=== PATIENT | female | born 1935 | race Caucasian/White ===

== ENCOUNTER 2018-05-28 14:05 | Inpatient (IN) ==
[2018-05-28] MEDS ORDERED: Aluminum/Magnesium/Simethacone Susp 30 ML UDC PO PRN (15:45)
[2018-05-29] MEDS ORDERED: Aluminum/Magnesium/Simethacone Susp 30 ML UDC PO PRN (08:19)
--- NOTE | 2018-05-29 08:49 | P.HPPSY ---
Provisional Diagnosis Admission Date: May 28, 2018 14:05 [place] I.: Dementia with behavioral disturbances no other disease, Alzheimer's disease with late onset Competence Certification of Person's Competence To Provide Express and Informed Consent I have personally examined Yanira Parker, a person being served at [facility] on, May 29, 2018 0832. Express and informed consent means consent voluntarily given in writing, by a competent person, after sufficient explanation and disclosure of the subject matter involved to enable the person to make a knowing and willful decision without any element of force, fraud, deceit, duress, or other form of constraint or coercion. This person is 18 years of age or older, is not now known to be incompetent to consent to treatment with a guardian advocate, and does not have a health care surrogate or proxy currently making medical treatment decisions. I have found this person to be one of the following: [] Competent to provide express and informed consent, as defined above, for voluntary admission to this facility and is competent to provide express and informed consent for treatment. He/she has the consistent capacity to make well reasoned, willful, and knowing decisions concerning his or her medical or mental health treatment. The person fully and consistently understands the purpose of the admission for examination/placement and is fully capable of personally exercising all rights assured under [place]xxx] Incompetent to provide express and informed consent to voluntary admission , and this is incompetent to provide express and informed consent to treatment. The person must be transferred to involuntary status and a petition for a guardian advocate filed with the Circuit Court. [] Refusing to provide express and informed consent to voluntary admission but is competent to provide express and informed consent for treatment. The person must be discharged or transferred to involuntary status. Form shall be completed within 24 hours of a person's arrival at the receiving facility and filed in the clinical record of each person: 1. Admitted on a voluntary basis 2. Permitted to provide express and informed consent to his/her own treatment 3. Allowed to transfer from involuntary to voluntary status 4. Prior to permitting a person to consent to his or her own treatment after having been previously found incompetent to consent to treatment. History of Present Illness Capacity: Lacks capacity Chief Complaint: Dementia with aggressive behavior History of Present Illness: Patient is an 83-year-old white female who comes here under a [place] act by the [place] [employer] dated 05/27/2018 at 5 PM that document reviewed essentially states said she wanted to kill herself was asking other people for sharp objects and knives she raised her fist me. She was screened in [facility] and transferred here after being medically cleared under the [place] act. Patient seen in her room with RN. Patient is a elderly white female appears her stated age she is calm cooperative if at times a little labile and "feisty" she states she is unhappy in her living [place] [facility]. She is quite confused as to the length of stay there. She does not remember saying she would rather be than continue living there she does not like the restrictions placed on her. Patient denies any past psychiatric history. She states she will have a rare beer and she will rarely sneak a cigarette. She states she has been for a number of years and has 2 children 1 son who is surviving those son . It appears she is living with a son until about 2 years ago when she moved in with her son by the name of Floyd. He was unable to care for her in the house due to his work obligations though she was placed back in October 2017 in this skilled nursing. I did talk to the son at [phone]. He gave the above history. States she is doing well there until just about a week ago when these no behavior started exhibiting themselves. He also denies any past psychiatric history with his mother and the alcohol or drug use or any abuse. At this time patient meets criteria for further observation and assessment. Upon review of her meds from the [facility] she was Seroquel 50 mg in the morning and 75 mg at 2 PM we will adjust that to 25 mg in the a.m. 50 mg at noon and 50 mg at 6 PM. Hopeless be fairly short stay and can work with this lady about finding an appropriate placement. Her son is in appears power of insurance defense attorney also do have a DNR form in the chart. At this time she does meet [place] criteria I will do first opinion request second opinion I do not feel she has capacity I will ask for health care surrogate and guardian advocate - Inpatient Certification I certify that the inpatient services were ordered in accordance with Medicare regulations governing the order. This includes certification that hospital inpatient services are reasonable and necessary and in the case of services not specified as inpatient-only under 42 CFR 419.22(n), that they are appropriately provided as inpatient services in accordance to with the 2-midnight benchmark under 43 CFR 412.3(e) I certify that inpatient psychiatric hospital services are medically necessary. Evaluation and treatment and/or diagnostic testing are expected to improve the patient's condition. The patient needs on a daily basis, active treatment furnished directly by or requiring the supervision of inpatient psychiatric facility personnel. Estimated Total Length of Stay (Days): 5 Plans for Post Hospital Care: long term Review of Systems unobtainable due to mental status, other (Patient demented markedly confused) [facility] - History History Provided By: Patient, Family Member (Son Floyd) - Medical History Medical History: Medical History (Last Updated 05/28/18 @ 20:38 by Melissa Bain RN) Dementia GERD (gastroesophageal reflux disease) Hypertension Hypothyroidism - Tobacco History Second Hand Smoke Exposure: No Smoking Status: Never smoker - Alcohol History How Often Do You Have a Drink Containing Alcohol: Never - Travel History Recent Travel in the USA Within the Last 8 Weeks: No Recent Travel Out of the Country Within the Last 8 Weeks: No Quality Measures - Psychiatric History Psychological trauma history: None known Violence risk to others in the last 6 months: Patient made vague threats at [facility] Violence risk to self in the last 6 months: Patient made vague threats at [facility] - Substance Abuse History Drug or alcohol use in the past 12 months: Denies - Patient Strengths Patient's strengths (minimum of 2): Patient verbal able access healthcare has supportive family Medications and Allergies Active Medications: Active Medications Acetaminophen (Tylenol) 650 mg PO Q4H PRN PRN Reason: Pain 1-5 or Temp >101F Al Hydrox/Mg Hydrox/Simethicone (Mag-Al Plus Susp Liq) 30 ml PO Q6H PRN PRN Reason: DYSPEPSIA Al Hydrox/Mg Hydrox/Simethicone (Mag-Al Plus Susp Liq) 30 ml PO Q6H PRN PRN Reason: DYSPEPSIA Al Hydroxide/Mg Hydroxide (Milk Of Magnesia Liq) 30 ml PO Q12H PRN PRN Reason: Mild Constipation Al Hydroxide/Mg Hydroxide (Milk Of Magnesia Liq) 30 ml PO Q12H PRN PRN Reason: Mild Constipation Aspirin (Aspirin Chew) 81 mg PO DAILY DONNA Atorvastatin Calcium (Lipitor) 40 mg PO DAILY COUNT INCLUDES THE [facility] Diphenhydramine HCl (Benadryl) 50 mg PO HS PRN PRN Reason: INSOMNIA Docusate Sodium (Colace) 100 mg PO HS COUNT INCLUDES THE [facility] Hydroxyzine HCl (Atarax) 50 mg PO Q6H PRN PRN Reason: ANXIETY Magnesium Oxide (Mag-Ox) 400 mg PO DAILY COUNT INCLUDES THE [facility] Non-Formulary Medication (Donepezil [Donepezil]) 10 mg PO HS COUNT INCLUDES THE [facility] Non-Formulary Medication (Ranitidine Hcl [Ranitidine Hcl]) 150 mg PO DAILY COUNT INCLUDES THE [facility] Quetiapine Fumarate (Seroquel) 50 mg PO DAILY@,18 COUNT INCLUDES THE [facility] Quetiapine Fumarate (Seroquel) 25 mg PO DAILY COUNT INCLUDES THE [facility] Verapamil HCl (Isoptin Sr) 120 mg PO DAILY COUNT INCLUDES THE [facility] Allergies Allergy/AdvReac Type Severity Reaction Status Date / Time Penicillins Allergy Hives Verified 05/28/18 15:18 Home Medications Medication Instructions Recorded Confirmed Type aspirin 81 mg PO DAILY 05/28/18 05/28/18 History atorvastatin 40 mg PO DAILY 05/28/18 05/28/18 History docusate sodium [Colace] 100 mg PO HS 05/28/18 05/28/18 History donepezil 10 mg PO HS 05/28/18 05/28/18 History ibuprofen 400 mg PO Q8HR 05/28/18 05/28/18 History magnesium oxide 400 mg PO DAILY 05/28/18 05/28/18 History quetiapine 25 mg PO DAILY 05/28/18 05/28/18 History quetiapine 50 mg PO DAILY 05/28/18 05/28/18 History quetiapine See Label Instructions .ROUTE 05/28/18 05/28/18 History .COMPLEX ranitidine HCl 150 mg PO DAILY 05/28/18 05/28/18 History verapamil 120 mg PO DAILY 05/28/18 05/28/18 History Exam Vital signs: Vital Signs 05/28/18 15:19 05/29/18 06:05 Temperature 97.9 F 97.7 F Pulse Rate 78 58 L Respiratory Rate 18 19 Blood Pressure 191/86 H 179/77 H Pulse Oximetry 96 93 L Intake & Output 05/28/18 05/29/18 05/29/18 18:59 06:59 18:59 Weight 76.5 kg Other: Weight On Admission 76.5 kg Narrative: Patient sitting quietly on the edge of her bed she is in no acute distress at times somewhat tearful she is in no respiratory distress, no complaints of chest pain, no complaints of abdominal pain, patient walks with a slow shuffled states he uses a cane at home Mental Status Examination Appearance: Appropriate Consciousness: Alert Orientation: Person, Place (Did not know [place]), Date/Time (2011), Situation (Post this is a hospital) Speech: Unremarkable Language: Adequate Fund of Knowledge: Inadequate Attention and Concentration: Easily distracted Memory: Impaired Mood: Sad, Irritable Affect: Other (Slight increased range and intensity) Thought Process & Associations: Disorganized Thought Content: Appropriate Hallucination Type: None Delusion Type: Paranoid (Mildly) Suicidal Ideation: Yes (Made vague statements) Suicidal Plan: No (Denies) Suicidal Intention: No Homicidal Ideation: No (Denies) Homicidal Plan: No Homicidal Intention: No Insight: Poor Judgment: Poor Assessment and Plan - Assessment (1) Dementia in other diseases classified elsewhere with behavioral disturbance Code(s): F02.81 - Dementia in other diseases classified elsewhere with behavioral disturbance Status: Acute (2) Alzheimer's disease with late onset Code(s): G30.1 - Alzheimer's disease with late onset; F02.80 - Dementia in other diseases classified elsewhere without behavioral disturbance Status: Acute - Plan Plan: Estimated LOS: 5-7 [] days Patient meets criteria for involuntary psychiatric hospitalization I will do first opinion request second opinion they feel she does not have capacity I will ask for health care surrogate and guardian advocate. We will have hospitalist also consult will us. We will have PT and OT also consult with us she medication adjustments above Justification for Continued Inpatient Stay: At this time patient would decompensate a place to a lower level of care Discharge Planning: To be determined
--- NOTE | 2018-05-29 10:55 | P.CONIM ---
History of Present Illness Service: [facility] Consult date: 05/29/18 Requesting Physician: Eric Leonard Reason for Consult: MEDICAL MANAGEMENT Primary Care Provider: No Primary Care Physician Chief Complaint: DEMENTIA History of Present Illness: PATIENT IS A 83 YEAR OLD FEMALE WHO WAS placed under a [place] act by the [place] police department on May 27, 2018 at 5 PM. Patient supposedly wanted to kill herself with sharp objects and knives was seen at [facility] transferred here for [place] act. Patient is also noted to be a DNR. Medications have been adjusted at the prior hospital before coming here We have been now asked to consult regarding medical management Had been living in a shelter prior to presentation to the hospital here Past medical history significant for dementia GERD Hypertension Hypothyroidism History of tobacco use Review of Systems All other systems reviewed negative except as stated in HPI, unobtainable due to mental condition, unobtainable due to mental status Constitutional: Denies anorexia, Denies fatigue, Denies malaise Eyes: Reports requires corrective lenses, Denies blind spots, Denies discharge Ears, Nose, Mouth, and Throat: Denies abnormal hearing, Denies difficulty swallowing, Denies facial pain, Denies mouth lesions, Denies nasal obstruction, Denies pain with swallowing, Denies sinus pain Cardiovascular: Denies chest pain, Denies fainting, Denies irregular heart rhythm, Denies lightheadedness, Denies rapid, pounding, or irregular heartbeat, Denies shortness of breath with activity, Denies shortness of breath causing sudden awakening Respiratory: Denies change in phlegm color, Denies excessive phlegm production, Denies shortness of breath, Denies wheezing Gastrointestinal: Denies abdominal pain, Denies change in stools, Denies difficulty swallowing, Denies incontinent of stools Musculoskeletal: Reports joint pain, Denies abnormal walking, Denies muscle cramps, Denies radiating pain into limb Skin/Breast: Denies acne, Denies breast pain, Denies change in skin color, Denies hair loss, Denies non-healing lesions Neurologic: Denies abnormal hearing, Denies behavioral changes, Denies frequent falls, Denies loss of vision, Denies radiating pain Psychiatric: Reports memory loss, Reports thoughts of hurting/killing yourself Endocrine: Denies cold intolerance, Denies increased hunger, Denies rapid, pounding, or irregular heartbeat Hematologic/Lymphatic: Denies easy bleeding, Denies easy bruising, Denies enlarged lymph nodes Allergic/Immunologic: Denies GI upset with certain foods, Denies seasonal runny nose PMFSH - History History Provided By: Patient, Family Member (Son Floyd) - Medical History Medical History: Medical History (Last Updated 05/28/18 @ 20:38 by Melissa Bain RN) Dementia GERD (gastroesophageal reflux disease) Hypertension Hypothyroidism - Tobacco History Second Hand Smoke Exposure: No Smoking Status: Never smoker - Alcohol History How Often Do You Have a Drink Containing Alcohol: Never - Travel History History of Recent Travel: No Recent Travel in the [place] Within the Last 8 Weeks: No Recent Travel Out of the Country Within the Last 8 Weeks: No Medications and Allergies Active Medications: Active Medications Acetaminophen (Tylenol) 650 mg PO Q4H PRN PRN Reason: Pain 1-5 or Temp >101F Al Hydrox/Mg Hydrox/Simethicone (Mag-Al Plus Susp Liq) 30 ml PO Q6H PRN PRN Reason: DYSPEPSIA Al Hydrox/Mg Hydrox/Simethicone (Mag-Al Plus Susp Liq) 30 ml PO Q6H PRN PRN Reason: DYSPEPSIA Al Hydroxide/Mg Hydroxide (Milk Of Magnesia Liq) 30 ml PO Q12H PRN PRN Reason: Mild Constipation Al Hydroxide/Mg Hydroxide (Milk Of Magnesia Liq) 30 ml PO Q12H PRN PRN Reason: Mild Constipation Aspirin (Aspirin Chew) 81 mg PO DAILY [facility] Atorvastatin Calcium (Lipitor) 40 mg PO DAILY DONNA Diphenhydramine HCl (Benadryl) 50 mg PO HS PRN PRN Reason: INSOMNIA Docusate Sodium (Colace) 100 mg PO HS DONNA Donepezil HCl (Aricept) 10 mg PO HS DONNA Famotidine (Pepcid) 20 mg PO DAILY DONNA Hydroxyzine HCl (Atarax) 50 mg PO Q6H PRN PRN Reason: ANXIETY Magnesium Oxide (Mag-Ox) 400 mg PO DAILY DONNA Quetiapine Fumarate (Seroquel) 50 mg PO DAILY@12,18 DONNA Quetiapine Fumarate (Seroquel) 25 mg PO DAILY DONNA Verapamil HCl (Isoptin Sr) 120 mg PO DAILY DONNA Allergies Allergy/AdvReac Type Severity Reaction Status Date / Time Penicillins Allergy Hives Verified 05/28/18 15:18 Home Medications Medication Instructions Recorded Confirmed Type aspirin 81 mg PO DAILY 05/28/18 05/28/18 History atorvastatin 40 mg PO DAILY 05/28/18 05/28/18 History docusate sodium [Colace] 100 mg PO HS 05/28/18 05/28/18 History donepezil 10 mg PO HS 05/28/18 05/28/18 History ibuprofen 400 mg PO Q8HR 05/28/18 05/28/18 History magnesium oxide 400 mg PO DAILY 05/28/18 05/28/18 History quetiapine 25 mg PO DAILY 05/28/18 05/28/18 History quetiapine 50 mg PO DAILY 05/28/18 05/28/18 History quetiapine See Label Instructions .ROUTE 05/28/18 05/28/18 History .COMPLEX ranitidine HCl 150 mg PO DAILY 05/28/18 05/28/18 History verapamil 120 mg PO DAILY 05/28/18 05/28/18 History Exam Vital signs: Vital Signs 05/28/18 15:19 05/29/18 06:05 Temperature 97.9 F 97.7 F Pulse Rate 78 58 L Respiratory Rate 18 19 Blood Pressure 191/86 H 179/77 H Pulse Oximetry 96 93 L Intake & Output 05/28/18 05/29/18 05/29/18 18:59 06:59 18:59 Weight 76.5 kg Other: Weight On Admission 76.5 kg Narrative: GENERAL: Awake and alert 1-2 talkative and cooperative some confusion SKIN: Warm and dry. HEAD: Atraumatic. Normocephalic. EYES: Pupils equal and round. No scleral icterus. No injection or drainage. ENT: No nasal bleeding or discharge. Mucous membranes pink and moist. NECK: Trachea midline. No JVD. CARDIOVASCULAR: Regular rate and rhythm. S1-S2 no S3 or S4 RESPIRATORY: No accessory muscle use. Clear to auscultation. Breath sounds equal bilaterally. GASTROINTESTINAL: Abdomen soft, non-tender, nondistended. Hepatic and splenic margins not palpable. MUSCULOSKELETAL: Extremities without clubbing, cyanosis, or edema. No obvious deformities. NEUROLOGICAL: Awake and alert. No obvious cranial nerve deficits. Motor grossly within normal limits. Five out of 5 muscle strength in the arms and legs. Normal speech. PSYCHIATRIC: Appropriate mood and affect; insight and judgment ABnormal. Results - Labs Labs: Pending Assessment and Plan - Plan Dementia will defer to psychiatry as they have already adjusted her Seroquel dose and have increased it Hypertension continue on her verapamil Hyperlipidemia continue on her atorvastatin GERD/GI prophylaxis continue on ranitidine or the equivalent Continue on aspirin Physical therapy and occupational therapy to eval and treat A.m. labs Discussed with RN and patient Will check UA with ASSISTANT PROFESSOR OF PHILOSOPHY will get a.m. labs CBC CMP TSH free T4 hemoglobin A1c magnesium and a phosphorus Code Status: DNR Discussed Condition With: pulley maintainer Planning: Clearance by psychiatry
[2018-05-29] MEDS: QUEtiapine 25 MG Tablet PO SCH ×3 (11:10→18:48)
[2018-05-29] MEDS: Famotidine 20 MG Tablet PO SCH (11:11)
[2018-05-29] MEDS: Magnesium Oxide 400 MG Tablet PO SCH (11:12)
[2018-05-29] MEDS: Acetaminophen 325 MG Tablet PO PRN ×2 (12:23→12:26)
[2018-05-29] MEDS: Docusate Sodium 100 MG Capsule PO SCH (20:50)
[2018-05-30] MEDS: Famotidine 20 MG Tablet PO SCH (08:27)
[2018-05-30] MEDS: Magnesium Oxide 400 MG Tablet PO SCH (08:28)
[2018-05-30] MEDS: QUEtiapine 25 MG Tablet PO SCH ×3 (08:29→17:21)
--- NOTE | 2018-05-30 11:55 | P.PN ---
Subjective Interval history: Follow-up visit for dementia, HTN and GERD. Patient seen and examined sitting up in a chair eating lunch this afternoon in the day room, in no acute distress. Nurse reports blood pressure is elevated, no other medical complaints reported. Patient denies any fevers, chills, nausea diarrhea, cough , shortness of breath or chest pain. Patient does endorse a headache early this morning but reports that it went away, denies any visual changes at the moment. Physical Exam Vital signs: Vital Signs 05/29/18 17:10 05/30/18 06:00 05/30/18 10:00 Temperature 37.1 C 36.7 C Pulse Rate 72 62 67 Respiratory Rate 18 16 Blood Pressure 152/72 H 170/77 H 164/70 H Pulse Oximetry 95 98 05/30/18 10:11 05/30/18 11:10 05/30/18 11:33 Temperature Pulse Rate 76 64 64 Respiratory Rate Blood Pressure 152/70 H 187/87 H 160/70 H Pulse Oximetry Narrative: GENERAL: Awake and alert talkative and cooperative. SKIN: Warm and dry. HEAD: Atraumatic. Normocephalic. EYES: Pupils equal and round. No scleral icterus. No injection or drainage. ENT: No nasal bleeding or discharge. Mucous membranes pink and moist. NECK: Trachea midline. CARDIOVASCULAR: Regular rate and rhythm. RESPIRATORY: No accessory muscle use. Clear to auscultation. Breath sounds equal bilaterally. GASTROINTESTINAL: Abdomen soft, non-tender, nondistended. + Bowel sounds MUSCULOSKELETAL: Extremities without clubbing, cyanosis, or edema. No obvious deformities. NEUROLOGICAL: Awake and alert, oriented to self and place. No obvious cranial nerve deficits. Motor grossly within normal limits. Normal speech. PSYCHIATRIC: Appropriate mood and affect; insight and judgment abnormal. Results - Labs CBC & Chem 7: 05/30/18 10:18 05/30/18 10:18 Assessment and Plan - Plan 83-year-old female with past medical history significant for dementia, HTN, and GERD threatening to kill herself with sharp objects. Dementia -Treatment plan per psychiatry, greatly appreciated Hypertension, uncontrolled Hyperlipidemia -BP this morning elevated, continue verapamil 120 mg daily, will add hydralazine 10 mg 3 times daily -Continue monitoring blood pressure in adjusting medications accordingly -Continue low-dose aspirin and Lipitor GERD -Continue p.o. Pepcid DVT prophylaxis-ambulating Discussed Condition With: MARIUSZ
[2018-05-30 12:01] LABS: Baso # (Auto) 0.1 th/mm3 (0.0-0.2); Baso % (Auto) 1.1 % (0.0-2.0); Eos # (Auto) 0.2 th/mm3 (0.0-0.4); Hemoglobin 12.8 gm/dL (11.6-15.3); Lymph # (Auto) 1.2 th/mm3 (1.0-4.8); Lymph % (Auto) 14.3 % (9.0-44.0); Mean Corpuscular HGB Conc 33.6 % (32.0-36.0); Mean Corpuscular Volume 89.3 fL (80.0-100.0); Mono # (Auto) 0.6 th/mm3 (0.0-0.9); Mono % (Auto) 7.7 % (0.0-8.0); Neut # (Auto) 6.2 th/mm3 (1.8-7.7); Neut % (Auto) 74.9 % (16.0-70.0); Platelet Count 260 th/mm3 (150-450); Red Blood Count 4.26 mil/mm3 (4.00-5.30); Red Cell Distribution Width 15.6 % (11.6-17.2); White Blood Count 8.3 th/mm3 (4.0-11.0)
[2018-05-30 12:13] LABS: Albumin 3.6 g/dL (3.4-5.0); Anion Gap 8 meq/L (5-15); Aspartate Aminotransferase 11 U/L (15-37); Blood Urea Nitrogen 22 mg/dL (7-18); Calcium 9.1 mg/dL (8.5-10.1); Carbon Dioxide 28.6 meq/L (21.0-32.0); Chloride 103 meq/L (98-107); Glomerular Filtration Rate 38 mL/min (>89); Glucose,Random 73 mg/dL (74-106); Magnesium 2.1 mg/dL (1.5-2.5); Potassium 4.3 meq/L (3.5-5.1); Sodium 140 meq/L (136-145)
[2018-05-30 12:14] LABS: Alanine Aminotransferase 17 U/L (10-53); Phosphorus 3.7 mg/dL (2.5-4.9)
[2018-05-30] MEDS: hydrALAZINE 10 MG Tablet PO SCH ×2 (12:14→17:21)
[2018-05-30 12:22] LABS: Alkaline Phosphatase 101 U/L (45-117); Free T4 (Free Thyroxine) 0.93 ng/dL (0.76-1.46); Total Protein 7.1 g/dL (6.4-8.2)
[2018-05-30 16:09] LABS: Hemoglobin A1c 5.1 % (4.3-6.0)
--- NOTE | 2018-05-30 17:33 | P.CONPSY ---
Provisional Diagnosis Admission Date: May 28, 2018 14:05 [place].: Dementia with behavioral disturbances no other disease, Alzheimer's disease with late onset History of Present Illness Service: Psychiatry Consult date: 05/30/18 Requesting Physician: Eric Leonard Reason for Consult: Second opinion Primary Care Provider: No Primary Care Physician Chief Complaint: DEMENTIA History of Present Illness: Patient is a 83-year-old woman, with no formal past psychiatric history, history of dementia, was brought in under [place] due to suicidal ideation asking for sharp objects which patient was admitted to the inpatient psychiatry unit for further evaluation and management. Patient was found participating group activity noted to be alert and oriented only to person, with poor recollection to circumstances of brought into the hospital. Patient states that she had been feeling "a little bit down" and that she reports feeling lonesome. Patient reports living with her daughter and her son-in-law. Patient also mentions having had suicidal ideation that "come and go" for the past year but denying any suicide ideations recently. Patient states that she had been sleeping "fair" had with adequate appetite and bowel movement and energy. Patient denying any perceptional services other than having auditory hallucinations occasionally "very very seldom" but was unable to elaborate on the content. No delusional material elicited. [facility] - History History Provided By: Patient, Family Member (Son Floyd) - Medical History Medical History: Medical History (Last Updated 05/28/18 @ 20:38 by Melissa Bain RN) Dementia GERD (gastroesophageal reflux disease) Hypertension Hypothyroidism - Tobacco History Second Hand Smoke Exposure: No Smoking Status: Never smoker - Alcohol History How Often Do You Have a Drink Containing Alcohol: Never - Travel History History of Recent Travel: No Recent Travel in the [place] Within the Last 8 Weeks: No Recent Travel Out of the Country Within the Last 8 Weeks: No Medications and Allergies Active Medications: Active Medications Acetaminophen (Tylenol) 650 mg PO Q4H PRN PRN Reason: Pain 1-5 or Temp >101F Last Admin: 05/29/18 12:26 Dose: 650 mg Al Hydrox/Mg Hydrox/Simethicone (Mag-Al Plus Susp Liq) 30 ml PO Q6H PRN PRN Reason: DYSPEPSIA Al Hydrox/Mg Hydrox/Simethicone (Mag-Al Plus Susp Liq) 30 ml PO Q6H PRN PRN Reason: DYSPEPSIA Al Hydroxide/Mg Hydroxide (Milk Of Magnesia Liq) 30 ml PO Q12H PRN PRN Reason: Mild Constipation Al Hydroxide/Mg Hydroxide (Milk Of Magnesia Liq) 30 ml PO Q12H PRN PRN Reason: Mild Constipation Aspirin (Aspirin Chew) 81 mg PO DAILY [facility] Last Admin: 05/30/18 08:28 Dose: 81 mg Atorvastatin Calcium (Lipitor) 40 mg PO DAILY [facility] Last Admin: 05/30/18 08:28 Dose: 40 mg Diphenhydramine HCl (Benadryl) 50 mg PO HS PRN PRN Reason: INSOMNIA Docusate Sodium (Colace) 100 mg PO HS [facility] Last Admin: 05/29/18 20:50 Dose: 100 mg Donepezil HCl (Aricept) 10 mg PO HS [facility] Last Admin: 05/29/18 20:50 Dose: 10 mg Famotidine (Pepcid) 20 mg PO DAILY [facility] Last Admin: 05/30/18 08:27 Dose: 20 mg Hydralazine HCl (Apresoline) 10 mg PO TID [facility] Last Admin: 05/30/18 17:21 Dose: 10 mg Hydroxyzine HCl (Atarax) 50 mg PO Q6H PRN PRN Reason: ANXIETY Last Admin: 05/29/18 23:44 Dose: 50 mg Magnesium Oxide (Mag-Ox) 400 mg PO DAILY [facility] Last Admin: 05/30/18 08:28 Dose: 400 mg Quetiapine Fumarate (Seroquel) 50 mg PO DAILY@12,18 [facility] Last Admin: 05/30/18 17:21 Dose: 50 mg Quetiapine Fumarate (Seroquel) 25 mg PO DAILY [facility] Last Admin: 05/30/18 08:29 Dose: 25 mg Verapamil HCl (Isoptin Sr) 120 mg PO DAILY [facility] Last Admin: 05/30/18 08:28 Dose: 120 mg Allergies Allergy/AdvReac Type Severity Reaction Status Date / Time Penicillins Allergy Hives Verified 05/28/18 15:18 Home Medications Medication Instructions Recorded Confirmed Type aspirin 81 mg PO DAILY 05/28/18 05/28/18 History atorvastatin 40 mg PO DAILY 05/28/18 05/28/18 History docusate sodium [Colace] 100 mg PO HS 05/28/18 05/28/18 History donepezil 10 mg PO HS 05/28/18 05/28/18 History ibuprofen 400 mg PO Q8HR 05/28/18 05/28/18 History magnesium oxide 400 mg PO DAILY 05/28/18 05/28/18 History quetiapine 25 mg PO DAILY 05/28/18 05/28/18 History quetiapine 50 mg PO DAILY 05/28/18 05/28/18 History quetiapine See Label Instructions .ROUTE 05/28/18 05/28/18 History .COMPLEX ranitidine HCl 150 mg PO DAILY 05/28/18 05/28/18 History verapamil 120 mg PO DAILY 05/28/18 05/28/18 History Exam Vital signs: Vital Signs 05/30/18 06:00 05/30/18 10:00 05/30/18 10:11 Temperature 98.1 F Pulse Rate 62 67 76 Respiratory Rate 16 Blood Pressure 170/77 H 164/70 H 152/70 H Pulse Oximetry 98 05/30/18 11:10 05/30/18 11:33 05/30/18 13:40 Temperature Pulse Rate 64 64 69 Respiratory Rate Blood Pressure 187/87 H 160/70 H 160/70 H Pulse Oximetry Mental Status Examination Appearance: Appropriate Consciousness: Alert Orientation: Person Speech: Unremarkable Language: Adequate Fund of Knowledge: Inadequate Attention and Concentration: Easily distracted Memory: Impaired Mood: Sad Affect: Other (Slight increased range and intensity) Thought Process & Associations: Disorganized Thought Content: Appropriate Hallucination Type: None Delusion Type: Paranoid (Mildly) Suicidal Ideation: No (Denies today) Suicidal Plan: No Suicidal Intention: No Homicidal Ideation: No Homicidal Plan: No Homicidal Intention: No Insight: Poor Judgment: Poor Assessment and Plan - Assessment (1) Dementia in other diseases classified elsewhere with behavioral disturbance Code(s): F02.81 - Dementia in other diseases classified elsewhere with behavioral disturbance Status: Acute (2) Alzheimer's disease with late onset Code(s): G30.1 - Alzheimer's disease with late onset; F02.80 - Dementia in other diseases classified elsewhere without behavioral disturbance Status: Acute - Plan Plan: I have seen and examined this patient, reviewed the documentation, discussed personally with Dr. Leonard, and I agree and concur with his assessment and plan. Consult appreciated. Justification for Continued Inpatient Stay: At risk of further decompensation a lower level of care.
[2018-05-30] MEDS: Docusate Sodium 100 MG Capsule PO SCH (20:05)
[2018-05-31] MEDS: Magnesium Oxide 400 MG Tablet PO SCH (08:41)
[2018-05-31] MEDS: QUEtiapine 25 MG Tablet PO SCH ×2 (08:41→12:02)
[2018-05-31] MEDS: Famotidine 20 MG Tablet PO SCH (08:42)
[2018-05-31] MEDS: hydrALAZINE 10 MG Tablet PO SCH ×2 (08:42→12:02)
--- NOTE | 2018-05-31 14:53 | P.PN ---
Subjective Interval history: Follow-up visit for dementia, HTN and GERD. Patient seen and examined sitting outside in psych outdoor/exercise area, in no acute distress. Patient able to provide name and location correctly. Patient denies any fevers, chills, nausea diarrhea, cough, shortness of breath or chest pain. Physical Exam Vital signs: Vital Signs 05/30/18 17:30 05/30/18 17:34 05/31/18 06:20 Temperature 98.3 F Pulse Rate 75 66 63 Respiratory Rate 17 Blood Pressure 185/80 H 162/74 H 165/81 H Pulse Oximetry 98 95 Narrative: GENERAL: Awake and alert, in no acute distress EYES: EOMI. No scleral icterus. No injection or drainage. CARDIOVASCULAR: Regular rate and rhythm. RESPIRATORY: No accessory muscle use. Clear to auscultation. Breath sounds equal bilaterally. GASTROINTESTINAL: Abdomen soft, non-tender, nondistended. Normoactive Bowel sounds MUSCULOSKELETAL: Extremities without clubbing, cyanosis, or edema. No obvious deformities. NEUROLOGICAL: Awake and alert, oriented to self and place. No obvious cranial nerve deficits. Motor grossly within normal limits. Results - Labs CBC & Chem 7: 05/30/18 10:18 05/30/18 10:18 Laboratory Results - last 24 hr 05/30/18 10:18 Hemoglobin A1c 5.1 Assessment and Plan - Plan 83-year-old female with past medical history significant for dementia, HTN, and GERD reportedly threatened to kill herself with sharp objects. Dementia -Treatment plan per psychiatry Hypertension, uncontrolled Hyperlipidemia -continue verapamil 120 mg daily, added hydralazine 10 mg 3 times daily -Continue monitoring blood pressure in adjusting medications accordingly -Continue low-dose aspirin and Lipitor GERD -Continue p.o. Pepcid Acute versus chronic kidney disease, unknown baseline 05/30/2018, BUN 22 creatinine 1.34 estimated GFR 38 Recheck BMP in a.m. DVT prophylaxis-ambulating Discussed with patient, nursing staff and supervising physician Dr. Montenegro
--- NOTE | 2018-05-31 18:01 | P.DSPSY ---
Psychiatry Discharge Summary Inpatient Psychiatric care?: Yes Advance Directives: No Mental Health Advance Directive: No Health Care Proxy: Yes - Admission Admission Date: May 28, 2018 14:05 - Admission Diagnosis (1) Dementia in other diseases classified elsewhere with behavioral disturbance Code(s): F02.81 - Dementia in other diseases classified elsewhere with behavioral disturbance (2) Alzheimer's disease with late onset Code(s): G30.1 - Alzheimer's disease with late onset; F02.80 - Dementia in other diseases classified elsewhere without behavioral disturbance Brief History: Patient is an 83-year-old white female who comes here under a [place] act by the [place] [employer] dated 05/27/2018 at 5 PM that document reviewed essentially states said she wanted to kill herself was asking other people for sharp objects and knives she raised her fist me. She was screened in [facility] and transferred here after being medically cleared under the [place] act. Patient seen in her room with RN. Patient is a elderly white female appears her stated age she is calm cooperative if at times a little labile and "feisty" she states she is unhappy in her living situation in a group home home. She is quite confused as to the length of stay there. She does not remember saying she would rather be than continue living there she does not like the restrictions placed on her. Patient denies any past psychiatric history. She states she will have a rare beer and she will rarely sneak a cigarette. She states she has been for a number of years and has 2 children 1 son who is surviving those son . It appears she is living with a son until about 2 years ago when she moved in with her son by the name of Floyd. He was unable to care for her in the house due to his work obligations though she was placed back in October 2017 in this custodial. I did talk to the son at [id number]. He gave the above history. States she is doing well there until just about a week ago when these no behavior started exhibiting themselves. He also denies any past psychiatric history with his mother and the alcohol or drug use or any abuse. At this time patient meets criteria for further observation and assessment. Upon review of her meds from the [facility] she was Seroquel 50 mg in the morning and 75 mg at 2 PM we will adjust that to 25 mg in the a.m. 50 mg at noon and 50 mg at 6 PM. Hopeless be fairly short stay and can work with this lady about finding an appropriate placement. Her son is in appears power of energy attorney also do have a DNR form in the chart. At this time she does meet [place] criteria I will do first opinion request second opinion I do not feel she has capacity I will ask for health care surrogate and guardian advocate Tobacco Use In Past 30 Days: No How Often Do You Have a Drink Containing Alcohol: Never Hospital Course: Patient is a 83-year-old woman, with no formal past psychiatric history, history of dementia, was brought in under [place] act due to suicidal ideation asking for sharp objects which patient was admitted to the inpatient psychiatry unit for further evaluation and management. Patient was started on quetiapine and titrated to 50mg daily/1200,1800hrs, and continued on medications for chronic medical conditions which she tolerated medications well with no adverse drug reactions, noted to have baseline confusion but did not endorse any suicidal ideation during admission. Patient continued to deny any suicidal or homicidal ideation nor any perceptual disturbances. She responded well to treatment, was noted to be cooperative with staff, had good behavioral control with no evidence of any verbal or physical aggressive behavior toward others and was noted to have stable mood with treatment. Upon discharge patient reported feeling good denied any perceptual disturbances nor suicidal ideations or homicidal ideations. Patient agreed to continue treatment and follow up appointments for continuity of care. Patient will be discharged back to [facility] with plan to continue recommendations on an outpatient setting. Supportive psychotherapy provided. Suicide and violence risk assessment on day of discharge both suggest lower imminent risk, and the patient's level of function is adequate for planned level of outpatient care. Patient has maximized benefit from this inpatient psychiatric hospital stay and to return to psychiatric emergency room for any concerning psychiatric symptoms. Patient agrees with plan. - Discharge Discharge Date: 05/31/18 - Discharge Diagnosis (1) Dementia in other diseases classified elsewhere with behavioral disturbance Code(s): F02.81 - Dementia in other diseases classified elsewhere with behavioral disturbance Status: Acute (2) Alzheimer's disease with late onset Code(s): G30.1 - Alzheimer's disease with late onset; F02.80 - Dementia in other diseases classified elsewhere without behavioral disturbance Status: Acute Discharge Disposition: Assisted Living Facility - Discharge Instructions Discharge Diet: Heart Healthy Diet Activities You Can Perform: Weight Bearing As Tolerat - Discharge Time > 30 minutes Mental Status Examination Appearance: Appropriate Consciousness: Alert Orientation: Person Speech: Unremarkable Language: Adequate Fund of Knowledge: Inadequate Attention and Concentration: Easily distracted Memory: Impaired Mood: Sad Affect: Other (Slight increased range and intensity) Thought Process & Associations: Intact, Linear Thought Content: Appropriate Hallucination Type: None Delusion Type: None Suicidal Ideation: No Suicidal Plan: No Suicidal Intention: No Homicidal Ideation: No Homicidal Plan: No Homicidal Intention: No Insight: Poor Judgment: Poor Discharge/Advance Care Plan - Results Vital Signs: Last Vital Signs Temp 98.3 F 05/31/18 06:20 Pulse 63 05/31/18 06:20 Resp 17 05/31/18 06:20 BP 165/81 H 05/31/18 06:20 Pulse Ox 95 05/31/18 06:20 Lab Results: Laboratory Results Hemoglobin A1c 5.1 % (4.3-6.0) 05/30/18 10:18 TSH 3.270 uIU/mL (0.358-3.740) 05/30/18 10:18 Free T4 0.93 ng/dL (0.76-1.46) 05/30/18 10:18 Summary of Procedures: none Pending Results: None - Medications Number of antipsychotic medications at discharge: 1 - Discharge Care Plan Goals to Promote Your Health: * To prevent worsening of your condition and complications * To maintain your health at the optimal level Directions to Meet Your Goals: Take your medications as prescribed Follow your dietary instruction Follow activity as directed Keep your appointments as scheduled Take your immunizations and boosters as scheduled If your symptoms worsen call your PCP, if no PCP go to Urgent Care Center or Emergency Room For 07/06 questions related to your inpatient stay or results of tests pending at discharge, please contact Dr. Moises Herrera MD at Smoking is Dangerous to Your Health. Avoid second hand smoking
== END 2018-05-31 14:05 ==
LOC: H260 14:05
PROVIDERS: ADMIT Student in an Organized Health Care Education/Training Program; ATTEND Student in an Organized Health Care Education/Training Program
DX: Z88.0 Allergy status to penicillin; Z87.891 Personal history of nicotine dependence; R45.851 Suicidal ideations; K21.9 Gastro-esophageal reflux disease without esophagitis; E03.9 Hypothyroidism, unspecified; I10 Essential (primary) hypertension; Z66 Do not resuscitate; Z79.82 Long term (current) use of aspirin; G30.1 Alzheimer's disease with late onset; E78.5 Hyperlipidemia, unspecified; F02.81 Dementia in other diseases classified elsewhere, unspecified severity, with behavioral disturbance